=== PATIENT | male | born 1955 | race Hispanic/Latino ===

== ENCOUNTER 2017-01-14 15:02 | Emergency (ER) | payer SELFPAY ==
[2017-01-14 15:19] VITALS: BP 157/103
[2017-01-14 16:02] LABS: Basophils % (Auto) 0.3 % (0.0-1.8); Eosinophils % (Auto) 0.8 % (0.0-4.3); Mean Corpuscular HGB Conc 33 % (32-34); Mean Corpuscular Hemoglobin 28 pg (28-32); Mean Corpuscular Volume 85 fl (84-94); Platelet Count 194 K/mm3 (140-440); Red Blood Count 5.42 M/mm3 (3.65-5.03); Red Cell Distribution Width 13.6 % (13.2-15.2); White Blood Count 6.4 K/mm3 (4.5-11.0)
[2017-01-14 16:19] LABS: Anion Gap 17 mmol/L; Blood Urea Nitrogen 16 mg/dL (9-20); Calcium 9.4 mg/dL (8.4-10.2); Carbon Dioxide 27 mmol/L (22-30); Chloride 99.9 mmol/L (98-107); Glucose 101 mg/dL (75-100); Potassium 4.2 mmol/L (3.6-5.0); Sodium 140 mmol/L (137-145)
== END 2017-01-14 16:41 | disposition left against medical advice (07) ==
LOC: ED 15:02
DX: R07.9 Chest pain, unspecified (principal); Z53.21 Procedure and treatment not carried out due to patient leaving prior to being seen by health care provider
CPT/HCPCS: 36415; 80048; 84484; 85025; 93005; 93010